=== PATIENT | female | born 1970 | race African-American/Black ===

== ENCOUNTER 2023-11-21 00:02 | Emergency (ER) | payer SELFPAY ==
[~2023-11-21] VITALS: Ht 162.6 cm; Wt 76.0 kg
[2023-11-21 00:21] VITALS: BP 152/80; PULSE 87; RESP 15; TEMP 98; O2SAT 99
== END 2023-11-21 01:15 | disposition left against medical advice (07) ==
LOC: ER 00:02
DX: R07.89 Other chest pain (principal); Z53.21 Procedure and treatment not carried out due to patient leaving prior to being seen by health care provider
CPT/HCPCS: 99281